=== PATIENT | female | born 1930 | race Caucasian/White ===

== ENCOUNTER 2017-03-20 08:57 | Emergency (ER) | payer MEDICARE, BC ==
[2017-03-20] MEDS ORDERED: Sodium Chloride 0.9% 10 ML Syringe FLUSH PRN ×2 (09:20→10:15)
--- NOTE | 2017-03-20 09:46 | EDM.PDOC ---
ED HPI GENERAL MEDICAL PROBLEM - General Chief Complaint: Chest Pain Stated Complaint: L ARM PAIN/DIZZY Time Seen by Provider: 03/20/17 09:10 Source of Information: Reports: Patient History Limitations: Reports: No Limitations - History of Present Illness INITIAL COMMENTS - FREE TEXT/NARRATIVE: The patient woke up with left arm pain. She went to get her paper and she turned and got dizzy, nauseated and sweaty. That lasted for a few minutes. She feels better now. She has a little pain in her left arm. She did carry groceries in her house yesterday. She has a history of A-fib on coumadin. She has no history of [place]. She has a history of HTN. She denies chest pain or shortness of breath. She has no abdominal pain. She has no pain or edema in her legs. Onset: Gradual Duration: Hour(s): (6am) Location: Reports: Upper Extremity, Left Quality: Reports: Ache Severity: Mild Improves with: Reports: None Worsens with: Reports: None Associated Symptoms: Reports: Nausea/Vomiting. Denies: Chest Pain, Cough, Fever /Chills, Shortness of Breath Left Arm Pain Score (Numeric/FACES): 3 - Related Data Allergies Allergy/AdvReac Type Severity Reaction Status Date / Time No Known Allergies Allergy Verified 06/25/16 00:01 Home Meds: Home Meds Warfarin [Coumadin] 5 mg PO SUTUWETHFRSA 06/22/16 [History] Acetaminophen 500 mg PO Q4H PRN 03/20/17 [History] Diltiazem HCl [Diltiazem 24Hr ER] 240 mg PO DAILY 03/20/17 [History] Furosemide 20 mg PO DAILY 03/20/17 [History] Lisinopril/Hydrochlorothiazide [Lisinopril-Hctz 20-25 mg Tab] 1 tab PO DAILY 04/28 [History] Magnesium Oxide [Magnesium] 400 mg PO BID 03/20/17 [History] Methimazole 5 mg PO DAILY 03/20/17 [History] Omeprazole 20 mg PO ACBREAKFAST 03/20/17 [History] Potassium Chloride [Klor-Con 10] 10 meq PO DAILY 03/20/17 [History] traMADol [Ultram] 50 mg PO TID PRN 03/20/17 [History] Past Medical History HEENT History: Reports: Cataract Cardiovascular History: Reports: Afib, High Cholesterol, Hypertension Other Cardiovascular History: hole in heart Respiratory History: Reports: None Gastrointestinal History: Reports: Gastritis Musculoskeletal History: Reports: Arthritis, Back Pain, Chronic, Neck Pain, Chronic Endocrine/Metabolic History: Reports: Hypothyroidism - Past Surgical History HEENT Surgical History: Reports: Cataract Surgery, Tonsillectomy GI Surgical History: Reports: Appendectomy, Cholecystectomy Endocrine Surgical History: Reports: Thyroidectomy Musculoskeletal Surgical History: Reports: Knee Replacement Social & Family History - Tobacco Use Smoking Status *Q: Never Smoker Second Hand Smoke Exposure: Yes - Caffeine Use Caffeine Use: Reports: None - Recreational Drug Use Recreational Drug Use: No ED ROS GENERAL - Review of Systems Review Of Systems: See Below Constitutional: Reports: No Symptoms HEENT: Reports: No Symptoms Respiratory: Reports: No Symptoms Cardiovascular: Reports: No Symptoms Endocrine: Reports: No Symptoms GI/Abdominal: Reports: Nausea. Denies: Abdominal Pain, Vomiting : Reports: No Symptoms Musculoskeletal: Reports: No Symptoms Skin: Reports: No Symptoms ED EXAM, GENERAL - Physical Exam Exam: See Below Exam Limited By: No Limitations General Appearance: Alert, No Apparent Distress Ears: Normal External Exam Nose: Normal Inspection Throat/Mouth: Normal Inspection Head: Atraumatic, Normocephalic Neck: Normal Inspection Respiratory/Chest: No Respiratory Distress, Lungs Clear, Normal Breath Sounds Cardiovascular: No Edema, No Murmur, Irregularly Irregular GI/Abdominal: Soft, Non-Tender, No Organomegaly, No Mass Back Exam: Normal Inspection Extremities: Normal Inspection Neurological: Alert, Oriented, No Motor/Sensory Deficits EKG INTERPRETATION EKG Date: 03/20/17 Time: 09:09 Rhythm: A-Fib Rate (Beats/Min): 78 [place]: Normal QRS: Normal ST-T: Normal QT: Normal Course - Vital Signs Last Recorded V/S: Last Vital Signs Temp 97.4 F 03/20/17 09:03 Pulse 93 03/20/17 09:03 Resp 16 03/20/17 09:03 BP 160/63 H 03/20/17 09:03 Pulse Ox 98 03/20/17 09:03 - Orders/Labs/Meds Orders: Active Orders 24 hr Category Date Time Status Cardiac Monitoring [RC] . DIRECTED Care 03/20/17 09:20 Active EKG 12 Lead [EKG Documentation Completion] [RC] STAT Care 03/20/17 09:09 Active Oxygen Therapy [RC] PRN Care 03/20/17 09:20 Active Peripheral IV Care [RC] . DIRECTED Care 03/20/17 09:20 Active TSH [CHEM] Stat Lab 03/20/17 09:20 Received Sodium Chloride 0.9% [Normal Saline] 1,000 ml Med 03/20/17 10:15 Active IV ASDIRECTED Sodium Chloride 0.9% [Normal Saline] 100 ml Med 03/20/17 10:15 Active IV ASDIRECTED Sodium Chloride 0.9% [Saline Flush] Med 03/20/17 09:20 Active 10 ml FLUSH ASDIRECTED PRN Sodium Chloride 0.9% [Saline Flush] Med 03/20/17 10:15 Active 10 ml FLUSH ONETIME PRN Peripheral IV Insertion Adult [OM.PC] Stat Oth 03/20/17 09:20 Ordered Medication Orders Sodium Chloride (Normal Saline) 1,000 mls @ 150 mls/hr IV ASDIRECTED RENETTA Last Admin: 03/20/17 10:20 Dose: 150 mls/hr Sodium Chloride (Normal Saline) 100 mls @ 80 mls/hr IV ASDIRECTED RENETTA Last Admin: 03/20/17 10:31 Dose: 80 mls/hr Sodium Chloride (Saline Flush) 10 ml FLUSH ASDIRECTED PRN PRN Reason: Keep Vein Open Last Admin: 03/20/17 09:25 Dose: 10 ml Sodium Chloride (Saline Flush) 10 ml FLUSH ONETIME PRN PRN Reason: IV FLUSH Last Admin: 03/20/17 10:31 Dose: 10 ml Labs: Laboratory Tests 03/20/17 03/20/17 03/20/17 Range/Units 09:20 09:20 09:20 WBC 5.75 (3.98-10.04) K/mm3 RBC 4.32 (3.98-5.22) M/mm3 Hgb 11.7 (11.2-15.7) gm/L Hct 36.4 (34.1-44.9) % MCV 84.3 (79.4-94.8) fl MCH 27.1 (25.6-32.2) pg MCHC 32.1 L (32.2-35.5) g/dl RDW Std Deviation 43.9 (36.4-46.3) fL Plt Count 219 (182-369) K/mm3 MPV 9.2 L (9.4-12.3) fl Neut % (Auto) 63.8 (34.0-71.1) % Lymph % (Auto) 18.8 L (19.3-51.7) % [place] % (Auto) 11.5 (4.7-12.5) % Eos % (Auto) 5.4 (0.7-5.8) Baso % (Auto) 0.2 (0.1-1.2) % Neut # (Auto) 3.67 (1.56-6.13) K/mm3 Lymph # (Auto) 1.08 L (1.18-3.74) K/mm3 [place] # (Auto) 0.66 H (0.24-0.36) K/mm3 Eos # (Auto) 0.31 (0.04-0.36) K/mm3 Baso # (Auto) 0.01 (0.01-0.08) K/mm3 PT 36.9 H (8.0-13.0) SECONDS INR 3.15 Sodium 142 (136-145) mEq/L Potassium 4.1 (3.5-5.1) mEq/L Chloride 106 (98-107) mEq/L Carbon Dioxide 25 (21-32) mEq/L Anion Gap 15.1 H (5-15) BUN 29 H (7-18) mg/dL Creatinine 1.3 H (0.55-1.02) mg/dL Est Cr Clr Drug Dosing 26.92 mL/min Estimated GFR (MDRD) 39 (>60) mL/min BUN/Creatinine Ratio 22.3 H (14-18) Glucose 108 (83-115) mg/dL Calcium 9.3 (8.5-10.1) mg/dL Total Bilirubin 0.6 (0.2-1.0) mg/dL AST 24 (15-37) U/L ALT 18 (14-59) U/L Alkaline Phosphatase 230 H (46-116) U/L Troponin I < 0.017 (0.00-0.056) ng/mL Total Protein 8.1 (6.4-8.2) g/dl Albumin 3.7 (3.4-5.0) g/dl Globulin 4.4 gm/dL Albumin/Globulin Ratio 0.8 L (1-2) Meds: Medications Generic Name Dose Route Start Last Admin Trade Name Freq PRN Reason Stop Dose Admin Sodium Chloride 1,000 mls @ 150 mls/hr 03/20/17 10:15 03/20/17 10:20 Normal Saline IV 150 mls/hr ASDIRECTED RENETTA Administration Sodium Chloride 100 mls @ 80 mls/hr 03/20/17 10:15 03/20/17 10:31 Normal Saline IV 80 mls/hr ASDIRECTED RENETTA Administration Sodium Chloride 10 ml 03/20/17 09:20 03/20/17 09:25 Saline Flush FLUSH 10 ml ASDIRECTED PRN Administration Keep Vein Open Sodium Chloride 10 ml 03/20/17 10:15 03/20/17 10:31 Saline Flush FLUSH 10 ml ONETIME PRN Administration IV FLUSH Discontinued Medications Generic Name Dose Route Start Last Admin Trade Name Freq PRN Reason Stop Dose Admin Iopamidol 100 ml 03/20/17 10:15 03/20/17 10:31 [id number] (76%) IVPUSH 03/20/17 10:16 80 ml ONETIME ONE Administration - Re-Assessments/Exams Free Text/Narrative Re-Assessment/Exam: 03/20/17 09:49 I ordered an EKG, labs, and CXR. Her EKG shows A-fib with no acute changes. 03/20/17 11:29 Her CXR shows a superior mediastinal widening with deviation of the trachea to the right side. 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 I ordered a CT and it confirmed the goiter. 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 She is on a pill for her thyroid. Her CBC looks good. Her INR was 3.15. Her creatinine was 1.3. Her Alk PHos was 230. Her troponin was negative. She says since she has been taking this thyroid pill her muscles have been hurting. Departure - Departure Time of Disposition: 11:35 Disposition: Home, Self-Care 01 Condition: Good Clinical Impression: Left arm pain, Vertigo, Goiter Referrals: Alan Barton MD [Primary Care Provider] - 1 Week Forms: ED Department Discharge Additional Instructions: Take your medication as prescribed. Your INR was 3.15. That is on the high side. We will send this information to your doctor. Follow up with Dr Barton in 1 week. Please return if you are worse. - My Orders Last 24 Hours: My Active Orders 03/20/17 09:09 EKG 12 Lead [EKG Documentation Completion] [RC] STAT 03/20/17 09:20 Cardiac Monitoring [RC] . DIRECTED Oxygen Therapy [RC] PRN Peripheral IV Care [RC] . DIRECTED TSH [CHEM] Stat Sodium Chloride 0.9% [Saline Flush] 10 ml FLUSH ASDIRECTED PRN Peripheral IV Insertion Adult [OM.PC] Stat 03/20/17 10:15 Sodium Chloride 0.9% [Normal Saline] 1,000 ml IV ASDIRECTED Sodium Chloride 0.9% [Normal Saline] 100 ml IV ASDIRECTED Sodium Chloride 0.9% [Saline Flush] 10 ml FLUSH ONETIME PRN - Assessment/Plan Last 24 Hours: My Active Orders 03/20/17 09:09 EKG 12 Lead [EKG Documentation Completion] [RC] STAT 03/20/17 09:20 Cardiac Monitoring [RC] . DIRECTED Oxygen Therapy [RC] PRN Peripheral IV Care [RC] . DIRECTED TSH [CHEM] Stat Sodium Chloride 0.9% [Saline Flush] 10 ml FLUSH ASDIRECTED PRN Peripheral IV Insertion Adult [OM.PC] Stat 03/20/17 10:15 Sodium Chloride 0.9% [Normal Saline] 1,000 ml IV ASDIRECTED Sodium Chloride 0.9% [Normal Saline] 100 ml IV ASDIRECTED Sodium Chloride 0.9% [Saline Flush] 10 ml FLUSH ONETIME PRN
--- NOTE | 2017-03-20 09:55 | CR ---
Chest: Frontal view of the chest was obtained. Comparison: No prior chest x-ray. Widening of the superior mediastinum is seen with deviation of the trachea to the right side. Heart size at the upper limits of normal. Lungs are clear with no acute infiltrates. Impression: 1. Superior mediastinal widening with deviation of the trachea to the right side. 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 If patient's creatinine is normal, contrast would be helpful. 2. Nothing acute is otherwise seen. Diagnostic code #9
[2017-03-20] MEDS ORDERED: Sodium Chloride 0.9% 100 ML IV SCH (10:15)
[2017-03-20] MEDS ORDERED: Sodium Chloride 0.9% 1,000 ML IV SCH (10:15)
[2017-03-20] MEDS ORDERED: Iopamidol 755 Mg/ML 100 ML Bottle IVPUSH ONE (10:15)
--- NOTE | 2017-03-20 10:47 | CT ---
CT chest Technique: Multiple axial sections through the chest were obtained. Intravenous contrast was utilized. Comparison: Previous chest x-ray performed on the same day. Findings: Substernal thyroid goiter is seen on the left side extending into the mediastinum and pushing the trachea to the right side. This substernal thyroid goiter contains some incidental calcifications. Small mediastinal lymph nodes are seen which are felt to be within normal limits. Minimal coronary artery calcification is seen. No pericardial thickening is seen. Pulmonary arteries are opacified and show no discrete filling defects. Small nodule is noted within the left lung base measuring about 3 mm. Lungs otherwise are clear. No pleural effusion is seen. Bone window settings were reviewed which shows degenerative spurring within the spine. Impression: 1. 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 2. Small 3 mm nodule within the left lung base felt to be incidental given the patient's age. 3. Other incidental findings as noted above. Nothing acute is appreciated. Diagnostic code #3
[2017-03-20 11:34] VITALS: BP 132/84
== END 2017-03-20 11:45 | disposition home or self-care (01) ==
LOC: JD.ED 08:57
DX: R42 Dizziness and giddiness (principal); M79.602 Pain in left arm; E04.9 Nontoxic goiter, unspecified; I10 Essential (primary) hypertension; E78.00 Pure hypercholesterolemia, unspecified; I48.91 Unspecified atrial fibrillation; M19.90 Unspecified osteoarthritis, unspecified site; Z98.49 Cataract extraction status, unspecified eye; Z90.49 Acquired absence of other specified parts of digestive tract; Z98.890 Other specified postprocedural states; Z96.659 Presence of unspecified artificial knee joint; E89.0 Postprocedural hypothyroidism; Z79.899 Other long term (current) drug therapy
CPT/HCPCS: 36415; 71010; 71275; 80053; 84443; 84484; 85025; 85610; 93005; 96360; 99285; J7030; J7040; J7050; Q9967; 99284

== ENCOUNTER 2018-05-01 01:02 | Inpatient (IN) | payer MEDICARE, BC ==
[2018-05-01] MEDS ORDERED: Sodium Chloride 0.9% 10 ML Syringe FLUSH PRN (01:15)
--- NOTE | 2018-05-01 03:14 | EDM.PDOC ---
ED HPI GENERAL MEDICAL PROBLEM - General Chief Complaint: Respiratory Problem Stated Complaint: [facility] Time Seen by Provider: 05/01/18 01:11 Source of Information: Reports: Patient, EMS History Limitations: Reports: No Limitations - History of Present Illness INITIAL COMMENTS - FREE TEXT/NARRATIVE: The patient said she was walking from the kitchen to the living room and she fell. She did hit her head but she had no LOC. She is not sure why she fell but she says she has felt weak lately and she has been short of breath with a cough that is productive of yellowish sputum. She came by [facility]. She has no headache, neck pain, abdominal pain, nausea, vomiting, numbness or weakness. She has no hip pain or arm pain. She does have some left thigh pain at times. Onset: Sudden Duration: Minutes: Improves with: Reports: None Worsens with: Reports: None Associated Symptoms: Reports: Cough, cough w sputum. Denies: Chest Pain, Fever/ Chills, Headaches, Nausea/Vomiting, Shortness of Breath Left Leg Pain Score (Numeric/FACES): 4 - Related Data Allergies Allergy/AdvReac Type Severity Reaction Status Date / Time No Known Allergies Allergy Verified 05/01/18 01:03 Home Meds: Home Meds Warfarin [Coumadin] 5 mg PO SUTUWETHFRSA 06/22/16 [History] Acetaminophen 500 mg PO Q4H PRN 03/20/17 [History] Diltiazem HCl [Diltiazem 24Hr ER] 240 mg PO DAILY 03/20/17 [History] Furosemide 1 - 2 tab PO DAILY PRN 03/20/17 [History] Lisinopril/Hydrochlorothiazide [Lisinopril-Hctz 20-25 mg Tab] 1 tab PO DAILY 04/28 [History] Omeprazole 20 mg PO ACBREAKFAST 03/20/17 [History] Potassium Chloride [Klor-Con 10] 10 meq PO DAILY 03/20/17 [History] methIMAzole [Methimazole] 5 mg PO DAILY 03/20/17 [History] Diltiazem [Dilacor XR] 240 mg PO DAILY 05/01/18 [History] Warfarin [Coumadin] 2.5 mg PO MO 05/01/18 [History] Past Medical History HEENT History: Reports: Cataract Cardiovascular History: Reports: Afib, Hypertension Other Cardiovascular History: hole in heart Respiratory History: Reports: None Gastrointestinal History: Reports: Gastritis [employer] History: Reports: Musculoskeletal History: Reports: Arthritis, Back Pain, Chronic, Neck Pain, Chronic Endocrine/Metabolic History: Reports: Hypothyroidism - Past Surgical History HEENT Surgical History: Reports: Cataract Surgery, Tonsillectomy GI Surgical History: Reports: Appendectomy, Cholecystectomy Endocrine Surgical History: Reports: Thyroidectomy Musculoskeletal Surgical History: Reports: Knee Replacement Social & Family History - Tobacco Use Smoking Status *Q: Never Smoker - Caffeine Use Caffeine Use: Reports: None - Recreational Drug Use Recreational Drug Use: No ED ROS GENERAL - Review of Systems Review Of Systems: See Below Constitutional: Reports: No Symptoms HEENT: Reports: No Symptoms Respiratory: Reports: Shortness of Breath, Cough, Sputum Cardiovascular: Reports: No Symptoms Endocrine: Reports: No Symptoms GI/Abdominal: Reports: No Symptoms : Reports: No Symptoms Musculoskeletal: Reports: No Symptoms Skin: Reports: No Symptoms Neurological: Reports: No Symptoms ED EXAM, GENERAL - Physical Exam Exam: See Below Exam Limited By: No Limitations General Appearance: Alert, No Apparent Distress Ears: Normal External Exam Nose: Normal Inspection Head: Atraumatic, Normocephalic Neck: Normal Inspection Respiratory/Chest: No Respiratory Distress, Decreased Breath Sounds Cardiovascular: Regular Rate, Rhythm, No Edema, No Murmur GI/Abdominal: Soft, Non-Tender, No Organomegaly, No Mass Back Exam: Normal Inspection Extremities: Pedal Edema Neurological: Alert, Oriented, No Motor/Sensory Deficits EKG INTERPRETATION EKG Date: 05/01/18 Time: 13:25 Rhythm: A-Fib Rate (Beats/Min): 106 [place]: LAD-Left Percy Deviation QRS: Normal ST-T: Normal QT: Normal Course - Vital Signs Last Recorded V/S: Last Vital Signs Temp 98.4 F 05/01/18 01:04 Pulse 114 H 05/01/18 01:04 Resp 18 05/01/18 01:04 BP 160/92 H 05/01/18 01:04 Pulse Ox 92 L 05/01/18 01:04 - Orders/Labs/Meds Orders: Active Orders 24 hr Category Date Time Status Cardiac Monitoring [RC] . DIRECTED Care 05/01/18 01:15 Active EKG Documentation Completion [RC] ASDIRECTED Care 05/01/18 01:17 Active Peripheral IV Care [RC] . DIRECTED Care 05/01/18 01:16 Active Chest 2V [CR] Stat Exams 05/01/18 01:16 Taken Head wo Cont [CT] Stat Exams 05/01/18 01:16 Taken Sodium Chloride 0.9% [Saline Flush] Med 05/01/18 01:15 Active 10 ml FLUSH ASDIRECTED PRN Peripheral IV Insertion Adult [OM.PC] Stat Oth 05/01/18 01:15 Ordered EKG 12 Lead [EK] Stat Ther 05/01/18 01:17 Ordered Medication Orders Sodium Chloride (Saline Flush) 10 ml FLUSH ASDIRECTED PRN PRN Reason: Keep Vein Open Last Admin: 05/01/18 01:30 Dose: 10 ml Labs: Laboratory Tests 05/01/18 05/01/18 05/01/18 Range/Units 01:40 01:40 01:40 WBC 8.36 (3.98-10.04) K/mm3 RBC 4.50 (3.98-5.22) M/mm3 Hgb 12.7 (11.2-15.7) gm/L Hct 39.2 (34.1-44.9) % MCV 87.1 (79.4-94.8) fl MCH 28.2 (25.6-32.2) pg MCHC 32.4 (32.2-35.5) g/dl RDW Std Deviation 45.0 (36.4-46.3) fL Plt Count 239 (182-369) K/mm3 MPV 9.4 (9.4-12.3) fl Neut % (Auto) 74.6 H (34.0-71.1) % Lymph % (Auto) 10.6 L (19.3-51.7) % [place] % (Auto) 11.4 (4.7-12.5) % Eos % (Auto) 3.1 (0.7-5.8) Baso % (Auto) 0.2 (0.1-1.2) % Neut # (Auto) 6.23 H (1.56-6.13) K/mm3 Lymph # (Auto) 0.89 L (1.18-3.74) K/mm3 [place] # (Auto) 0.95 H (0.24-0.36) K/mm3 Eos # (Auto) 0.26 (0.04-0.36) K/mm3 Baso # (Auto) 0.02 (0.01-0.08) K/mm3 PT 15.4 H (9.5-12.1) SECONDS INR 1.42 Sodium 136 (136-145) mEq/L Potassium 3.3 L (3.5-5.1) mEq/L Chloride 104 (98-107) mEq/L Carbon Dioxide 24 (21-32) mEq/L Anion Gap 11.3 (5-15) BUN 24 H (7-18) mg/dL Creatinine 1.0 (0.55-1.02) mg/dL Est Cr Clr Drug Dosing 30.16 mL/min Estimated GFR (MDRD) 52 (>60) mL/min BUN/Creatinine Ratio 24.0 H (14-18) Glucose 98 (83-115) mg/dL Calcium 9.2 (8.5-10.1) mg/dL Total Bilirubin 0.8 (0.2-1.0) mg/dL AST 38 H (15-37) U/L ALT 24 (14-59) U/L Alkaline Phosphatase 146 H (46-116) U/L Troponin I < 0.017 (0.00-0.056) ng/mL NT-Pro-B Natriuret Pep (0-450) pg/mL Total Protein 8.2 (6.4-8.2) g/dl Albumin 3.2 L (3.4-5.0) g/dl Globulin 5.0 gm/dL Albumin/Globulin Ratio 0.6 L (1-2) Urine Color (Yellow) Urine Appearance (Clear) Urine pH (5.0-8.0) Ur Specific Herman (1.005-1.030) Urine Protein (Negative) Urine Glucose (UA) (Negative) Urine Ketones (Negative) Urine Occult Blood (Negative) Urine Nitrite (Negative) Urine Bilirubin (Negative) Urine Urobilinogen (0.2-1.0) Ur Leukocyte Esterase (Negative) Urine RBC (0-5) /hpf Urine WBC (0-5) /hpf Ur Epithelial Cells (0-5) /hpf Urine Bacteria (FEW) /hpf Urine Mucus (FEW) /hpf 05/01/18 05/01/18 Range/Units 01:40 03:28 WBC (3.98-10.04) K/mm3 RBC (3.98-5.22) M/mm3 Hgb (11.2-15.7) gm/L Hct (34.1-44.9) % MCV (79.4-94.8) fl MCH (25.6-32.2) pg MCHC (32.2-35.5) g/dl RDW Std Deviation (36.4-46.3) fL Plt Count (182-369) K/mm3 MPV (9.4-12.3) fl Neut % (Auto) (34.0-71.1) % Lymph % (Auto) (19.3-51.7) % [place] % (Auto) (4.7-12.5) % Eos % (Auto) (0.7-5.8) Baso % (Auto) (0.1-1.2) % Neut # (Auto) (1.56-6.13) K/mm3 Lymph # (Auto) (1.18-3.74) K/mm3 [place] # (Auto) (0.24-0.36) K/mm3 Eos # (Auto) (0.04-0.36) K/mm3 Baso # (Auto) (0.01-0.08) K/mm3 PT (9.5-12.1) SECONDS INR Sodium (136-145) mEq/L Potassium (3.5-5.1) mEq/L Chloride (98-107) mEq/L Carbon Dioxide (21-32) mEq/L Anion Gap (5-15) BUN (7-18) mg/dL Creatinine (0.55-1.02) mg/dL Est Cr Clr Drug Dosing mL/min Estimated GFR (MDRD) (>60) mL/min BUN/Creatinine Ratio (14-18) Glucose (83-115) mg/dL Calcium (8.5-10.1) mg/dL Total Bilirubin (0.2-1.0) mg/dL AST (15-37) U/L ALT (14-59) U/L Alkaline Phosphatase (46-116) U/L Troponin I (0.00-0.056) ng/mL NT-Pro-B Natriuret Pep 2047 H (0-450) pg/mL Total Protein (6.4-8.2) g/dl Albumin (3.4-5.0) g/dl Globulin gm/dL Albumin/Globulin Ratio (1-2) Urine Color Dark yellow (Yellow) Urine Appearance Slt cloudy H (Clear) Urine pH 6.0 (5.0-8.0) Ur Specific Herman 1.025 (1.005-1.030) Urine Protein 1+ H (Negative) Urine Glucose (UA) Negative (Negative) Urine Ketones Trace H (Negative) Urine Occult Blood Negative (Negative) Urine Nitrite Negative (Negative) Urine Bilirubin 1+ H (Negative) Urine Urobilinogen 2.0 H (0.2-1.0) Ur Leukocyte Esterase 1+ H (Negative) Urine RBC 0-5 (0-5) /hpf Urine WBC 5-10 H (0-5) /hpf Ur Epithelial Cells 10-20 H (0-5) /hpf Urine Bacteria Moderate H (FEW) /hpf Urine Mucus Few (FEW) /hpf Meds: Medications Generic Name Dose Route Start Last Admin Trade Name Freq PRN Reason Stop Dose Admin Sodium Chloride 10 ml 05/01/18 01:15 05/01/18 01:30 Saline Flush FLUSH 10 ml ASDIRECTED PRN Administration Keep Vein Open Discontinued Medications Generic Name Dose Route Start Last Admin Trade Name Freq PRN Reason Stop Dose Admin Furosemide 40 mg 05/01/18 03:24 05/01/18 03:32 Lasix IVPUSH 05/01/18 03:25 40 mg NOW ONE Administration - Re-Assessments/Exams Free Text/Narrative Re-Assessment/Exam: 05/01/18 03:14 I ordered an IV saline lock, EKG, CT of her head, labs and CXR. Her EKG shows A -fib with no acute changes. Her CXR shows widened mediastinum that was seen before and some mild congestive changes. Her CBC looks good. Her INR was subtherapeutic at 1.42. Her K was a little low at 3.3. Her AST was slightly elevated at 38. Her Alk Phos was elevated at 146. Her troponin was negative. Her BNP was elevated at 2047. She has some CHF. [facility] called me and the CT shows acute subdural hematoma layering along the falx cerebri measuring 2mm in thickness. 05/01/18 03:25 I will need to admit her and observe her with repeat CT. It is early and I will wait to call the neurosurgeon and hospitalist. She says she has not felt well for a couple days. I will get a UA and give her lasix 40mg IV. 05/01/18 03:27 I will also hold her coumadin for now. I asked her what her wishes were if she were to stop breathing or if her heart were to stop and she said to do everything. For now she is a full code. 05/01/18 06:23 Her UA shows no UTI. It appears it was a contaminated sample. I called [facility] in [place] and talked with Dr Guerra and he recommended observation and a repeat CT in a month with him. I called Dr Hall and he agreed to the admission. The patient has the fall, subdural hematoma and CHF exacerbation. Departure - Departure Time of Disposition: 06:30 Disposition: Admitted As Inpatient 64 Condition: Fair Clinical Impression: Subdural hematoma Fall Qualifiers: Encounter type: initial encounter Qualified Code(s): W19.XXXA - Unspecified fall, initial encounter CHF exacerbation Qualifiers: Heart failure type: unspecified Qualified Code(s): I50.9 - Heart failure, unspecified - Discharge Information Referrals: Alan Barton MD [Primary Care Provider] - Forms: ED Department Discharge - My Orders Last 24 Hours: My Active Orders 05/01/18 01:15 Cardiac Monitoring [RC] . DIRECTED Sodium Chloride 0.9% [Saline Flush] 10 ml FLUSH ASDIRECTED PRN Peripheral IV Insertion Adult [OM.PC] Stat 05/01/18 01:16 Peripheral IV Care [RC] . DIRECTED Chest 2V [CR] Stat Head wo Cont [CT] Stat 05/01/18 01:17 EKG Documentation Completion [RC] ASDIRECTED EKG 12 Lead [EK] Stat - Assessment/Plan Last 24 Hours: My Active Orders 05/01/18 01:15 Cardiac Monitoring [RC] . DIRECTED Sodium Chloride 0.9% [Saline Flush] 10 ml FLUSH ASDIRECTED PRN Peripheral IV Insertion Adult [OM.PC] Stat 05/01/18 01:16 Peripheral IV Care [RC] . DIRECTED Chest 2V [CR] Stat Head wo Cont [CT] Stat 05/01/18 01:17 EKG Documentation Completion [RC] ASDIRECTED EKG 12 Lead [EK] Stat
[2018-05-01] MEDS ORDERED: Furosemide 40 MG/4 ML VIAL IVPUSH ONE (03:24)
--- NOTE | 2018-05-01 07:18 | PCM.HP ---
H&P History of Present Illness - General Date of Service: 05/01/18 Admit Problem/Dx: Admission Diagnosis/Problem Admission Diagnosis/Problem Subdural hematoma Source of Information: Patient, Provider, RN, RN Notes Reviewed History Limitations: Reports: No Limitations - History of Present Illness Initial Comments - Free Text/Narative: Pamela Lim is an 87 yo female patient who presented to our ED via ambulance late last night (05/01/18) after a fall. She was reportedly walking from her kitchen into the living room and fell. She denies loss of consciousness but states she did her head. She is unsure why she fell but states she has been weak lately. She reports SOB, cough, and yellow colored sputum. She denies headache, neck pain, abdominal pain, nausea, vomiting, weakness, fever, or chills. In the ED temperature was 98.4 Fahrenheit. Pulse 114. Respirations 18. Blood pressure 160/92. Pulse ox 92%. Twelve-lead EKG was obtained and interpreted by the ED provider as A. fib at 106 bpm. There is left axis deviation. No ST segment abnormalities. Obtained: WBC normal at 8.36. Hemoglobin 12.7. Hematocrit 39.2. She's normocytic. Platelets are normal at 239,000. Neutrophils are elevated at 74.6%. PT is 15.4. INR is 1.42. Sodium is 136. Potassium is low at 3.3. Chloride is 104. Carbon dioxide 24. Anion gap 11.3. BUN is 24. Creatinine 1.0. EGFR is 52. Glucose 98. Calcium 9.2. Bilirubin 0.8. AST is elevated at 38, ALT 24, alkaline phosphatase 146. Troponin is negative at less than 0.017. Total protein is 8.2. Albumin is low at 3.2. ProBNP is high at 2047. UA is obtained and is noted to be dark yellow and slightly cloudy. One plus protein, trace ketones, 1+ bilirubin, 2.0-year- old bilirubin, 1+ leuk esterase, 5-10 urine wbc's, and 10-20 epithelial cells are noted. There is moderate bacteria. 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 Chest x-ray obtained shows a widened mediastinum however this is noted to be similar to prior chest x-rays. There is mild congestive changes. CT scan of the head was obtained and shows an acute subdural hematoma with around the falx cerebri measuring 2 mm in thickness. The ED provider did contact atelectasis in [place] and talk with Dr. Guerra. He recommended she be observed and repeat CT scan be obtained with him in a month. She carries a history of: A. fib, hypertension, Atrial septal defect , Hyperglycemia, chronic back pain, chronic neck pain, hyperthyroidism, dependant edema, DJD. She was never a smoker. She is a full code. Her PCP is Dr. Barton. Left Leg Pain Score (Numeric/FACES): 4 - Related Data Allergies/Adverse Reactions: Allergies Allergy/AdvReac Type Severity Reaction Status Date / Time No Known Allergies Allergy Verified 05/01/18 01:03 Home Medications: Home Meds Warfarin [Coumadin] 5 mg PO SUTUWETHFRSA 06/22/16 [History] Acetaminophen 500 mg PO Q4H PRN 03/20/17 [History] Diltiazem HCl [Diltiazem 24Hr ER] 240 mg PO DAILY 03/20/17 [History] Furosemide 1 - 2 tab PO DAILY PRN 03/20/17 [History] Lisinopril/Hydrochlorothiazide [Lisinopril-Hctz 20-25 mg Tab] 1 tab PO DAILY 04/28 [History] Omeprazole 20 mg PO ACBREAKFAST 03/20/17 [History] Potassium Chloride [Klor-Con 10] 10 meq PO DAILY 03/20/17 [History] methIMAzole [Methimazole] 5 mg PO DAILY 03/20/17 [History] Diltiazem [Dilacor XR] 240 mg PO DAILY 05/01/18 [History] Ferrous Sulfate [Slow Fe] 1 tab PO DAILY 05/01/18 [History] Warfarin [Coumadin] 2.5 mg PO MO 05/01/18 [History] Past Medical History HEENT History: Reports: Cataract Cardiovascular History: Reports: Afib, Hypertension Other Cardiovascular History: hole in heart Respiratory History: Reports: None Gastrointestinal History: Reports: Gastritis 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: Musculoskeletal History: Reports: Arthritis, Back Pain, Chronic, Neck Pain, Chronic Endocrine/Metabolic History: Reports: Hypothyroidism - Past Surgical History HEENT Surgical History: Reports: Cataract Surgery, Tonsillectomy GI Surgical History: Reports: Appendectomy, Cholecystectomy Endocrine Surgical History: Reports: Thyroidectomy Musculoskeletal Surgical History: Reports: Knee Replacement Social & Family History - Tobacco Use Smoking Status *Q: Never Smoker - Caffeine Use Caffeine Use: Reports: None - Recreational Drug Use Recreational Drug Use: No H&P Review of Systems - Review of Systems: Review Of Systems: See Below General: Denies: Fever, Chills, Malaise, Weakness HEENT: Reports: No Symptoms. Denies: Post Nasal Drip, Sore Throat Pulmonary: Reports: Shortness of Breath, Cough, Sputum. Denies: Wheezing Cardiovascular: Reports: No Symptoms. Denies: Chest Pain, Palpitations, Edema Gastrointestinal: Reports: No Symptoms. Denies: Abdominal Pain, Constipation, Diarrhea, Nausea, Vomiting Genitourinary: Reports: No Symptoms. Denies: Dysuria, Frequency, Burning, Pain Musculoskeletal: Reports: No Symptoms Skin: Reports: No Symptoms Psychiatric: Reports: No Symptoms Neurological: Reports: No Symptoms. Denies: Confusion Hematologic/Lymphatic: Reports: No Symptoms Immunologic: Reports: No Symptoms Exam - Exam Exam: See Below - Vital Signs Vital Signs: Last Vital Signs Temp 98.4 F 05/01/18 01:04 Pulse 114 H 05/01/18 01:04 Resp 18 05/01/18 01:04 BP 160/92 H 05/01/18 01:04 Pulse Ox 92 L 05/01/18 01:04 Weight: 185 lb - Exam Quality Assessment: DVT Prophylaxis General: Alert, Oriented, Cooperative HEENT: Conjunctiva Clear, EACs Clear, EOMI, Hearing Intact, Mucosa Moist & [place] , Nares Patent, Normal Nasal Septum, Posterior Pharynx Clear, PERRLA Neck: Supple, Trachea Midline Lungs: Normal Respiratory Effort, Decreased Breath Sounds Cardiovascular: Irregular Rhythm. No: Regular Rate GI/Abdominal Exam: Normal Bowel Sounds, Soft, Non-Tender, No Organomegaly, No Distention, No Abnormal Bruit, No Mass, Pelvis Stable (Female) Exam: Deferred Rectal (Female) Exam: Deferred Back Exam: Normal Inspection, Full Range of Motion Extremities: Normal Inspection, Normal Range of Motion, Non-Tender, Normal Capillary Refill, Pedal Edema (trace ) Peripheral Pulses: 2+: Radial (L), Radial (R), Dorsalis Pedis (L), Dorsalis Pedis (R) Skin: Warm, Dry, Intact Neurological: Cranial Nerves Intact, Strength Equal Bilateral, Normal Speech, Normal Tone, Sensation Intact Neuro Extensive - Mental Status: Alert, Oriented x3, Normal Mood/Affect, Normal Cognition, Memory Intact Neuro Extensive - Motor, Sensory, Reflexes: CN II-XII Intact, Normal Gait. No: Tongue Deviation (L), Tongue Deviation (R), Receptive Aphasia, Expressive Aphasia, Total Aphasia, Facial palsy (L), Facial Palsy (R), Facial Palsy w Forehead, Hemeplagia (R), Hemeplagia (L), Pronator Drift (R), Pronator Drift (L) , Abnormal Finger to Nose Psychiatric: Alert, Normal Affect, Normal Mood - Patient Data Lab Results Last 24 hrs: Laboratory Results - last 24 hr 05/01/18 05/01/18 05/01/18 Range/Units 01:40 01:40 01:40 WBC 8.36 (3.98-10.04) K/mm3 RBC 4.50 (3.98-5.22) M/mm3 Hgb 12.7 (11.2-15.7) gm/L Hct 39.2 (34.1-44.9) % MCV 87.1 (79.4-94.8) fl MCH 28.2 (25.6-32.2) pg MCHC 32.4 (32.2-35.5) g/dl RDW Std Deviation 45.0 (36.4-46.3) fL Plt Count 239 (182-369) K/mm3 MPV 9.4 (9.4-12.3) fl Neut % (Auto) 74.6 H (34.0-71.1) % Lymph % (Auto) 10.6 L (19.3-51.7) % Gordon % (Auto) 11.4 (4.7-12.5) % Eos % (Auto) 3.1 (0.7-5.8) Baso % (Auto) 0.2 (0.1-1.2) % Neut # (Auto) 6.23 H (1.56-6.13) K/mm3 Lymph # (Auto) 0.89 L (1.18-3.74) K/mm3 Gordon # (Auto) 0.95 H (0.24-0.36) K/mm3 Eos # (Auto) 0.26 (0.04-0.36) K/mm3 Baso # (Auto) 0.02 (0.01-0.08) K/mm3 PT 15.4 H (9.5-12.1) SECONDS INR 1.42 Sodium 136 (136-145) mEq/L Potassium 3.3 L (3.5-5.1) mEq/L Chloride 104 (98-107) mEq/L Carbon Dioxide 24 (21-32) mEq/L Anion Gap 11.3 (5-15) BUN 24 H (7-18) mg/dL Creatinine 1.0 (0.55-1.02) mg/dL Est Cr Clr Drug Dosing 30.16 mL/min Estimated GFR (MDRD) 52 (>60) mL/min BUN/Creatinine Ratio 24.0 H (14-18) Glucose 98 (83-115) mg/dL Calcium 9.2 (8.5-10.1) mg/dL Total Bilirubin 0.8 (0.2-1.0) mg/dL AST 38 H (15-37) U/L ALT 24 (14-59) U/L Alkaline Phosphatase 146 H (46-116) U/L Troponin I < 0.017 (0.00-0.056) ng/mL NT-Pro-B Natriuret Pep (0-450) pg/mL Total Protein 8.2 (6.4-8.2) g/dl Albumin 3.2 L (3.4-5.0) g/dl Globulin 5.0 gm/dL Albumin/Globulin Ratio 0.6 L (1-2) Urine Color (Yellow) Urine Appearance (Clear) Urine pH (5.0-8.0) Ur Specific [place] (1.005-1.030) Urine Protein (Negative) Urine Glucose (UA) (Negative) Urine Ketones (Negative) Urine Occult Blood (Negative) Urine Nitrite (Negative) Urine Bilirubin (Negative) Urine Urobilinogen (0.2-1.0) Ur Leukocyte Esterase (Negative) Urine RBC (0-5) /hpf Urine WBC (0-5) /hpf Ur Epithelial Cells (0-5) /hpf Urine Bacteria (FEW) /hpf Urine Mucus (FEW) /hpf 05/01/18 05/01/18 Range/Units 01:40 03:28 WBC (3.98-10.04) K/mm3 RBC (3.98-5.22) M/mm3 Hgb (11.2-15.7) gm/L Hct (34.1-44.9) % MCV (79.4-94.8) fl MCH (25.6-32.2) pg MCHC (32.2-35.5) g/dl RDW Std Deviation (36.4-46.3) fL Plt Count (182-369) K/mm3 MPV (9.4-12.3) fl Neut % (Auto) (34.0-71.1) % Lymph % (Auto) (19.3-51.7) % Gordon % (Auto) (4.7-12.5) % Eos % (Auto) (0.7-5.8) Baso % (Auto) (0.1-1.2) % Neut # (Auto) (1.56-6.13) K/mm3 Lymph # (Auto) (1.18-3.74) K/mm3 [place] # (Auto) (0.24-0.36) K/mm3 Eos # (Auto) (0.04-0.36) K/mm3 Baso # (Auto) (0.01-0.08) K/mm3 PT (9.5-12.1) SECONDS INR Sodium (136-145) mEq/L Potassium (3.5-5.1) mEq/L Chloride (98-107) mEq/L Carbon Dioxide (21-32) mEq/L Anion Gap (5-15) BUN (7-18) mg/dL Creatinine (0.55-1.02) mg/dL Est Cr Clr Drug Dosing mL/min Estimated GFR (MDRD) (>60) mL/min BUN/Creatinine Ratio (14-18) Glucose (83-115) mg/dL Calcium (8.5-10.1) mg/dL Total Bilirubin (0.2-1.0) mg/dL AST (15-37) U/L ALT (14-59) U/L Alkaline Phosphatase (46-116) U/L Troponin I (0.00-0.056) ng/mL NT-Pro-B Natriuret Pep 2047 H (0-450) pg/mL Total Protein (6.4-8.2) g/dl Albumin (3.4-5.0) g/dl Globulin gm/dL Albumin/Globulin Ratio (1-2) Urine Color Dark yellow (Yellow) Urine Appearance Slt cloudy H (Clear) Urine pH 6.0 (5.0-8.0) Ur Specific [place] 1.025 (1.005-1.030) Urine Protein 1+ H (Negative) Urine Glucose (UA) Negative (Negative) Urine Ketones Trace H (Negative) Urine Occult Blood Negative (Negative) Urine Nitrite Negative (Negative) Urine Bilirubin 1+ H (Negative) Urine Urobilinogen 2.0 H (0.2-1.0) Ur Leukocyte Esterase 1+ H (Negative) Urine RBC 0-5 (0-5) /hpf Urine WBC 5-10 H (0-5) /hpf Ur Epithelial Cells 10-20 H (0-5) /hpf Urine Bacteria Moderate H (FEW) /hpf Urine Mucus Few (FEW) /hpf Result Diagrams: 05/01/18 01:40 05/01/18 01:40 - Problem List (1) Subdural hematoma SNOMED Code(s): 69513855 ICD Code: S06.5X9A - TRAUM SUBDR HEM W LOC OF UNSP DURATION, INIT Status: Acute Priority: High Current Visit: Yes (2) Fall SNOMED Code(s): 8820775, 308480557 ICD Code: W19.XXXA - UNSPECIFIED FALL, INITIAL ENCOUNTER Status: Acute Priority: High Current Visit: Yes Qualifiers: Encounter type: initial encounter Qualified Code(s): W19.XXXA - Unspecified fall, initial encounter (3) A-fib SNOMED Code(s): 06802276 ICD Code: I48.91 - UNSPECIFIED ATRIAL FIBRILLATION Status: Chronic Priority: Medium Current Visit: No Qualifiers: Atrial fibrillation type: unspecified Qualified Code(s): I48.91 - Unspecified atrial fibrillation (4) HTN (hypertension) SNOMED Code(s): 14550248 ICD Code: I10 - ESSENTIAL (PRIMARY) HYPERTENSION Status: Chronic Priority : Medium Current Visit: No Qualifiers: Hypertension type: unspecified Qualified Code(s): I10 - Essential (primary ) hypertension (5) Chronic neck and back pain SNOMED Code(s): 19859371 ICD Code: M54.2 - CERVICALGIA; M54.9 - DORSALGIA, UNSPECIFIED; G89.29 - OTHER CHRONIC PAIN Status: Chronic Priority: Low Current Visit: No (6) Hyperthyroidism SNOMED Code(s): 21087768 ICD Code: E05.90 - THYROTOXICOSIS, UNSP WITHOUT THYROTOXIC CRISIS OR STORM Status: Chronic Priority: High Current Visit: Yes (7) DJD (degenerative joint disease) SNOMED Code(s): 742323232 ICD Code: M19.90 - UNSPECIFIED OSTEOARTHRITIS, UNSPECIFIED SITE Status: Chronic Priority: Low Current Visit: No Qualifiers: Osteoarthritis location: unspecified site Osteoarthritis type: unspecified Qualified Code(s): M19.90 - Unspecified osteoarthritis, unspecified site (8) Dependent edema SNOMED Code(s): 384441124 ICD Code: R60.9 - EDEMA, UNSPECIFIED Status: Chronic Priority: Medium Current Visit: Yes Problem List Initiated/Reviewed/Updated: Yes Orders Last 24hrs: Active Orders 24 hr Category Date Time Status Patient Status [ADT] Routine ADT 05/01/18 06:48 Active Cardiac Monitoring [RC] . DIRECTED Care 05/01/18 01:15 Active EKG Documentation Completion [RC] ASDIRECTED Care 05/01/18 01:17 Active Peripheral IV Care [RC] . DIRECTED Care 05/01/18 01:16 Active Chest 2V [CR] Stat Exams 05/01/18 01:16 Taken Head wo Cont [CT] Stat Exams 05/01/18 01:16 Taken Sodium Chloride 0.9% [Saline Flush] Med 05/01/18 01:15 Active 10 ml FLUSH ASDIRECTED PRN Peripheral IV Insertion Adult [OM.PC] Stat Oth 05/01/18 01:15 Ordered EKG 12 Lead [EK] Stat Ther 05/01/18 01:17 Ordered Medication Orders Sodium Chloride (Saline Flush) 10 ml FLUSH ASDIRECTED PRN PRN Reason: Keep Vein Open Last Admin: 05/01/18 01:30 Dose: 10 ml Assessment/Plan Comment:: I/P: Subdural hematoma -2/2 fall - hit head, denies LOC -Risk factor: on Warfarin -INR 1.42 -Head CT scan: Acute subdural hematoma layering along falx cerebri measuring 2mm in thickness -Dr. Guerra contacted by ED Provider: Recommending observation and repeat CT in one month with him -Seizure precautions -Neuro checks as ordered -Fall precautions -PT/OT -Repeat CT if needed Fall -Fell at home going from kitchen to living room -Unsure why she fell -Denies LOC -Reports productive cough and SOB for last 2 weeks -No leukocytosis, reports fever and cold 2 weeks ago -UA shows probable contamination; denies urinary symptoms; repeat -EKG in ED shows A-fib with no ST changes -Troponin negative -Viral panel ordered Elevated BNP -BNP 2046 -No reported prior history of heart failure -CXR in ED: Nothing acute superior mediastinal mass correlating with substernal thyroid goiter -Trace pedal edema -40mg IVP Lasix given in ED -Reports productive cough and SOB for last 2 weeks -On home lisinopril/HCTZ and lasix -Troponin negative -Obtain old records: No hx of heart failure, Hx/o dependant edema -Echo today Hypothyroidism -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 fib hypertension Atrial septal defect Hyperglycemia chronic back pain chronic neck pain hyperthyroidism dependant edema DJD Plan: Admit to medical floor on telemetry Home medications as ordered Routine AM labs PT/OT CM/SW for discharge planning Other orders as indicated above DVT prophylaxis: SCDs GI Prophylaxis: Pepcid Code status: Full Code; PCP: Dr. Barton
[2018-05-01] MEDS ORDERED: Ondansetron 4 MG Tab.DIS PO PRN (08:42)
[2018-05-01] MEDS ORDERED: Acetaminophen/HYDROcodone 325-5 MG Tab PO PRN (08:42)
[2018-05-01] MEDS ORDERED: Ondansetron 4 MG/2 ML SDV IV PRN (08:42)
[2018-05-01] MEDS ORDERED: Docusate Sodium 100 MG Cap PO PRN (08:42)
[2018-05-01] MEDS ORDERED: Albuterol/Ipratropium 3.0-0.5 MG/3 ML Neb Soln NEB PRN (08:42)
[2018-05-01] MEDS ORDERED: Acetaminophen 325 MG Tab PO PRN (08:42)
[2018-05-01] MEDS ORDERED: Bisacodyl 5 MG Tab PO PRN (08:42)
[2018-05-01] MEDS ORDERED: Metoprolol Tartrate 5 MG/5 ML SDV IVPUSH PRN (08:46)
[2018-05-01] MEDS ORDERED: LORazepam 2 MG/ML SDV IVPUSH PRN (08:46)
[2018-05-01] MEDS ORDERED: hydrALAZINE 20 MG/ML SDV IVPUSH PRN (08:46)
[2018-05-01] MEDS ORDERED: Famotidine 20 MG Tab PO SCH (09:00)
--- NOTE | 2018-05-01 09:05 | CT ---
Head CT Technique: Multiple axial sections through the brain were obtained. Intravenous contrast was not utilized. Comparison: No prior intracranial imaging. Findings: Very small amount of subdural blood seen along the interhemispheric falx. No parenchymal hemorrhage is seen. Ventricles along with basal cisterns and sulci over the convexities are moderately prominent. Minimal diminished density is noted within the periventricular white matter which is compatible with small vessel ischemic demyelination change. Atherosclerotic calcification is noted within the carotid siphon. Bone window settings show scattered mucosal thickening within the frontal and ethmoid as well as sphenoid sinus which appears to be pre-existing. No acute calvarial abnormality is seen. Impression: 1. Mild mucosal thickening within the paranasal sinuses compatible with mild chronic sinusitis. 2. Small amount of subdural blood along the interhemispheric falx. 3. Senescent change as noted above. Diagnostic code #5 I agree with preliminary report from [facility], finalized on 05/01/18, 3:58 AM Central Time
--- NOTE | 2018-05-01 11:02 | CR ---
Chest: Two views of the chest are obtained. Comparison: Prior chest CT of 03/20/17 and chest x-ray of 03/20/17. Superior mediastinal mass is seen on the left side bowing the trachea to the right side. This correlates to an enlarged substernal thyroid goiter on chest CT. Lungs are clear. Heart size appears within normal limits. Mild degenerative change is noted throughout the spine. Impression: 1. Incidental findings. Nothing acute is seen on two-view chest x-ray. Diagnostic code #2
[2018-05-01] MEDS: Methimazole 5 MG Tab PO SCH (11:45)
[2018-05-01] MEDS: Diltiazem 240 MG Cap.ER PO SCH (11:45)
[2018-05-01] MEDS ORDERED: Potassium Chloride 20 MEQ Tab.ER PO ONE (12:00)
[2018-05-02] MEDS: Pantoprazole 40 MG Tab.CR PO SCH (06:16)
[2018-05-02] MEDS: guaiFENesin/Dextromethorphan 100-10 MG/5 ML Soln 5 ML Cup PO PRN (07:00)
[2018-05-02] MEDS ORDERED: Magnesium Sulfate/Water 4 GM in Premix Bag 1 BAG IV ONE (08:30)
[2018-05-02] MEDS ORDERED: Famotidine 20 MG Tab PO SCH (09:00)
[2018-05-02] MEDS: Methimazole 5 MG Tab PO SCH (10:17)
[2018-05-02] MEDS: Diltiazem 240 MG Cap.ER PO SCH (10:17)
[2018-05-02] MEDS: Ferrous Sulfate 325 MG Tab PO SCH (10:17)
[2018-05-02] MEDS: Furosemide 40 MG/4 ML VIAL IVPUSH SCH (10:17)
[2018-05-02] MEDS: Potassium Chloride 10 MEQ Tab.ER PO SCH (10:17)
[2018-05-02] MEDS ORDERED: cefTRIAXone 2 GM in Sodium Chloride 0.9% 100 ML IV SCH (15:30)
--- NOTE | 2018-05-02 15:37 | PCM.PN ---
- General Info Date of Service: 05/02/18 Admission Dx/Problem (Free Text): Admission Diagnosis/Problem Admission Diagnosis/Problem Subdural hematoma Subjective Update: In to see Pamela. She is sitting in chair talking on the phone. She seems very comfortable and even states she has enjoyed her stay here. She is alert and oriented. No new symptoms. She does still have a cough, states it hasn't worsened but is about the same as before. Still awaiting results from the viral panel. No other complaints. States she is feeling very good and ready to go home. I updated her on the UTI and that we will be starting treatment for it today; she is in agreement with this plan, but states "I don't have any symptoms ". No other concerns from nursing. Will likely D/C pending urine culture. Likely won't need a repeat CT while she is here unless she has a change in mentation, but still recommend outpt f/u CT. Functional Status: Reports: Pain Controlled, Tolerating Diet, Ambulating (with walker ), Urinating - Review of Systems General: Reports: No Symptoms. Denies: Fever, Chills HEENT: Reports: No Symptoms Pulmonary: Reports: Cough Cardiovascular: Reports: No Symptoms. Denies: Chest Pain Gastrointestinal: Reports: No Symptoms. Denies: Abdominal Pain, Diarrhea, Nausea, Vomiting Genitourinary: Reports: No Symptoms. Denies: Dysuria, Frequency, Burning, Pain , Urgency, Incontinence, Hematuria, Flank Pain Musculoskeletal: Reports: No Symptoms Skin: Reports: No Symptoms Neurological: Reports: No Symptoms. Denies: Confusion, Dizziness Psychiatric: Reports: No Symptoms. Denies: Confusion - Patient Data Vitals - Most Recent: Last Vital Signs Temp 97.7 F 05/02/18 10:09 Pulse 81 05/02/18 13:41 Resp 18 05/02/18 13:41 BP 126/64 05/02/18 13:41 Pulse Ox 97 05/02/18 13:41 Weight - Most Recent: 178 lb 8 oz I&O - Last 24 Hours: Intake & Output 05/02/18 05/02/18 05/02/18 06:59 14:59 22:59 Intake Total 200 180 Output Total 500 Balance -300 180 Lab Results Last 24 Hours: Laboratory Results - last 24 hr 05/01/18 05/02/18 05/02/18 Range/Units 18:25 05:15 05:15 WBC 7.08 (3.98-10.04) K/mm3 RBC 4.24 (3.98-5.22) M/mm3 Hgb 12.0 (11.2-15.7) gm/L Hct 37.1 (34.1-44.9) % MCV 87.5 (79.4-94.8) fl MCH 28.3 (25.6-32.2) pg MCHC 32.3 (32.2-35.5) g/dl RDW Std Deviation 44.0 (36.4-46.3) fL Plt Count 251 (182-369) K/mm3 MPV 9.6 (9.4-12.3) fl Neut % (Auto) 57.7 (34.0-71.1) % Lymph % (Auto) 24.4 (19.3-51.7) % [place] % (Auto) 11.3 (4.7-12.5) % Eos % (Auto) 6.2 H (0.7-5.8) Baso % (Auto) 0.3 (0.1-1.2) % Neut # (Auto) 4.08 (1.56-6.13) K/mm3 Lymph # (Auto) 1.73 (1.18-3.74) K/mm3 [place] # (Auto) 0.80 H (0.24-0.36) K/mm3 Eos # (Auto) 0.44 H (0.04-0.36) K/mm3 Baso # (Auto) 0.02 (0.01-0.08) K/mm3 Sodium 141 (136-145) mEq/L Potassium 3.8 (3.5-5.1) mEq/L Chloride 105 (98-107) mEq/L Carbon Dioxide 27 (21-32) mEq/L Anion Gap 12.8 (5-15) BUN 30 H (7-18) mg/dL Creatinine 1.1 H (0.55-1.02) mg/dL Est Cr Clr Drug Dosing 27.42 mL/min Estimated GFR (MDRD) 47 (>60) mL/min BUN/Creatinine Ratio 27.3 H (14-18) Glucose 98 (83-115) mg/dL Calcium 9.2 (8.5-10.1) mg/dL Magnesium 1.2 L (1.8-2.4) mg/dl NT-Pro-B Natriuret Pep (0-450) pg/mL Urine Color Yellow (Yellow) Urine Appearance Clear (Clear) Urine pH 6.0 (5.0-8.0) Ur Specific [place] 1.020 (1.005-1.030) Urine Protein Negative (Negative) Urine Glucose (UA) Negative (Negative) Urine Ketones Negative (Negative) Urine Occult Blood Negative (Negative) Urine Nitrite Negative (Negative) Urine Bilirubin Negative (Negative) Urine Urobilinogen 1.0 (0.2-1.0) Ur Leukocyte Esterase 1+ H (Negative) Urine RBC 0-5 (0-5) /hpf Urine WBC 5-10 H (0-5) /hpf Ur Epithelial Cells 10-20 H (0-5) /hpf Urine Bacteria Moderate H (FEW) /hpf Urine Mucus Moderate H (FEW) /hpf 05/02/18 Range/Units 05:15 WBC (3.98-10.04) K/mm3 RBC (3.98-5.22) M/mm3 Hgb (11.2-15.7) gm/L Hct (34.1-44.9) % MCV (79.4-94.8) fl MCH (25.6-32.2) pg MCHC (32.2-35.5) g/dl RDW Std Deviation (36.4-46.3) fL Plt Count (182-369) K/mm3 MPV (9.4-12.3) fl Neut % (Auto) (34.0-71.1) % Lymph % (Auto) (19.3-51.7) % [place] % (Auto) (4.7-12.5) % Eos % (Auto) (0.7-5.8) Baso % (Auto) (0.1-1.2) % Neut # (Auto) (1.56-6.13) K/mm3 Lymph # (Auto) (1.18-3.74) K/mm3 [place] # (Auto) (0.24-0.36) K/mm3 Eos # (Auto) (0.04-0.36) K/mm3 Baso # (Auto) (0.01-0.08) K/mm3 Sodium (136-145) mEq/L Potassium (3.5-5.1) mEq/L Chloride (98-107) mEq/L Carbon Dioxide (21-32) mEq/L Anion Gap (5-15) BUN (7-18) mg/dL Creatinine (0.55-1.02) mg/dL Est Cr Clr Drug Dosing mL/min Estimated GFR (MDRD) (>60) mL/min BUN/Creatinine Ratio (14-18) Glucose (83-115) mg/dL Calcium (8.5-10.1) mg/dL Magnesium (1.8-2.4) mg/dl NT-Pro-B Natriuret Pep 1246 H (0-450) pg/mL Urine Color (Yellow) Urine Appearance (Clear) Urine pH (5.0-8.0) Ur Specific [place] (1.005-1.030) Urine Protein (Negative) Urine Glucose (UA) (Negative) Urine Ketones (Negative) Urine Occult Blood (Negative) Urine Nitrite (Negative) Urine Bilirubin (Negative) Urine Urobilinogen (0.2-1.0) Ur Leukocyte Esterase (Negative) Urine RBC (0-5) /hpf Urine WBC (0-5) /hpf Ur Epithelial Cells (0-5) /hpf Urine Bacteria (FEW) /hpf Urine Mucus (FEW) /hpf Med Orders - Current: Current Medications Acetaminophen (Tylenol) 650 mg PO Q4H PRN PRN Reason: Pain (Mild 1-3)/fever Hydrocodone Bitart/Acetaminophen ([place] 325-5 Mg) 1 tab PO Q4H PRN PRN Reason: Pain (moderate 4-6) Albuterol/Ipratropium (Duoneb 3.0-0.5 Mg/3 Ml) 3 ml NEB Q4H PRN PRN Reason: Shortness Of Breath/wheezing Bisacodyl (Dulcolax) 5 mg PO DAILY PRN PRN Reason: Constipation Diltiazem HCl (Dilacor Xr) 240 mg PO DAILY [facility] Last Admin: 05/02/18 10:17 Dose: 240 mg Docusate Sodium (Colace) 100 mg PO BID PRN PRN Reason: Constipation Ferrous Sulfate (Ferrous Sulfate) 325 mg PO DAILY [facility] Last Admin: 05/02/18 10:17 Dose: 325 mg Furosemide (Lasix) 40 mg IVPUSH DAILY [facility] Last Admin: 05/02/18 10:17 Dose: 40 mg Guaifenesin/Phenylephrine HCl (Robitussin Dm) 10 ml PO Q6HR PRN PRN Reason: Cough Last Admin: 05/02/18 07:00 Dose: 10 ml Hydralazine HCl (Apresoline) 10 mg IVPUSH Q6H PRN PRN Reason: Hypertension Ceftriaxone Sodium 2 gm/ (Sodium Chloride) 100 mls @ 200 mls/hr IV Q24H [facility] Lorazepam (Ativan) 2 mg IVPUSH Q4H PRN PRN Reason: Seizures Methimazole (Methimazole) 5 mg PO DAILY [facility] Last Admin: 05/02/18 10:17 Dose: 5 mg Metoprolol Tartrate (Lopressor) 5 mg IVPUSH Q4H PRN PRN Reason: Tachycardia Ondansetron HCl (Zofran Odt) 4 mg PO Q6H PRN PRN Reason: nausea, able to take PO Ondansetron HCl (Zofran) 4 mg IV Q6H PRN PRN Reason: Nausea/Vomiting Pantoprazole Sodium (Protonix) 40 mg PO ACBREAKFAST [facility] Last Admin: 05/02/18 06:16 Dose: 40 mg Potassium Chloride (Klor-Con 10) 10 meq PO DAILY [facility] Last Admin: 05/02/18 10:17 Dose: 10 meq Saccharomyces Boulardii (Florastor) 250 mg PO BID [facility] Senna/Docusate Sodium (Senna Plus) 1 tab PO BID PRN PRN Reason: Constipation Sodium Chloride (Saline Flush) 10 ml FLUSH ASDIRECTED PRN PRN Reason: Keep Vein Open Last Admin: 05/01/18 01:30 Dose: 10 ml Discontinued Medications Famotidine (Pepcid) 20 mg PO BID [facility] Last Admin: 05/01/18 09:36 Dose: 20 mg Famotidine (Pepcid) 20 mg PO DAILY [facility] Furosemide (Lasix) 40 mg IVPUSH NOW ONE Stop: 05/01/18 03:25 Last Admin: 05/01/18 03:32 Dose: 40 mg Magnesium Sulfate 4 gm/ Premix 100 mls @ 25 mls/hr IV ONETIME ONE Stop: 05/02/18 12:29 Last Admin: 05/02/18 10:17 Dose: 25 mls/hr Magnesium Sulfate (Pharmacy To Dose - Magnesium Replacement) 1 dose .XX ASDIRECTED [facility] Potassium Chloride (Pharmacy To Dose - Potassium Replacement) 1 dose .XX ASDIRECTED [facility] Potassium Chloride (Klor-Con M20) 40 meq PO ONETIME ONE Stop: 05/01/18 12:01 Last Admin: 05/01/18 11:45 Dose: 40 meq - Exam Quality Assessment: DVT Prophylaxis. No: Supplemental Oxygen General: Alert, Oriented, Cooperative, No Acute Distress HEENT: Pupils Equal, Pupils Reactive, EOMI, Mucous Membr. Moist/[place] Neck: Supple Lungs: Clear to Auscultation, Normal Respiratory Effort Cardiovascular: Irregular Rhythm. No: Regular Rate (irregular) GI/Abdominal Exam: Normal Bowel Sounds, Soft, Non-Tender, No Organomegaly, No Distention, No Abnormal Bruit, No Mass, Pelvis Stable (Female) Exam: Deferred Back Exam: Normal Inspection, Full Range of Motion Extremities: Normal Inspection, Normal Range of Motion, Non-Tender, No Pedal Edema, Normal Capillary Refill Peripheral Pulses: 2+: Posterior Tibial (L), Posterior Tibial (R), Dorsalis Pedis (L), Dorsalis Pedis (R) Skin: Warm, Dry, Intact Neurological: No New Focal Deficit Psy/Mental Status: Alert, Normal Affect, Normal Mood - Problem List & Annotations (1) UTI (urinary tract infection) SNOMED Code(s): 52645733 Code(s): N39.0 - URINARY TRACT INFECTION, SITE NOT SPECIFIED Status: Acute Priority: High Current Visit: Yes Qualifiers: Urinary tract infection type: site unspecified Hematuria presence: without hematuria Qualified Code(s): N39.0 - Urinary tract infection, site not specified (2) Fall SNOMED Code(s): 3126682, 045667876 Code(s): W19.XXXA - UNSPECIFIED FALL, INITIAL ENCOUNTER Status: Acute Priority: High Current Visit: Yes Qualifiers: Encounter type: initial encounter Qualified Code(s): W19.XXXA - Unspecified fall, initial encounter (3) Subdural hematoma SNOMED Code(s): 42681175 Code(s): S06.5X9A - TRAUM SUBDR HEM W LOC OF UNSP DURATION, INIT Status: Acute Priority: High Current Visit: Yes - Problem List Review Problem List Initiated/Reviewed/Updated: Yes - My Orders Last 24 Hours: My Active Orders 05/02/18 15:30 cefTRIAXone [Rocephin] 2 gm Sodium Chloride 0.9% [Normal Saline] 100 ml IV Q24H 05/02/18 21:00 Saccharomyces Boulardii [Florastor] 250 mg PO BID - Plan Plan:: I/P: Subdural hematoma -2/2 fall - hit head, denies LOC -Risk factor: on Warfarin -INR 1.42 -Head CT scan: Acute subdural hematoma layering along falx cerebri measuring 2mm in thickness -Dr. Guerra contacted by ED Provider: Recommending observation and repeat CT in one month with him -Seizure precautions -Neuro checks as ordered -Fall precautions -PT/OT -Repeat CT if needed S/P Fall -Fell at home going from kitchen to living room -Unsure why she fell -Denies LOC -Reports productive cough and SOB for last 2 weeks -No leukocytosis, reports fever and cold 2 weeks ago -UA shows probable contamination; denies urinary symptoms; repeat -EKG in ED shows A-fib with no ST changes -Troponin negative -Viral panel ordered Elevated BNP -BNP 2047--> 1246 -No reported prior history of heart failure -CXR in ED: Nothing acute superior mediastinal mass correlating with substernal thyroid goiter -Trace pedal edema -40mg IVP Lasix given in ED -Reports productive cough and SOB for last 2 weeks -On home lisinopril/HCTZ and lasix -Troponin negative -Obtain old records: No hx of heart failure, Hx/o dependant edema -Echo: * LVEF 55% * Mild LVH * Moderate tricuspid valve regurgitation * R Vent systolic pressure mod elevated at 53.1 * Afib/flutter * ADS/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 fib hypertension Atrial septal defect Hyperglycemia chronic back pain chronic neck pain hyperthyroidism dependant edema DJD Plan: Admit to medical floor on telemetry Home medications as ordered Routine AM labs PT/OT CM/SW for discharge planning Other orders as indicated above DVT prophylaxis: SCDs GI Prophylaxis: Pepcid Code status: Full Code; PCP: Dr. Barton
[2018-05-02] MEDS: Saccharomyces Boulardii (Probiotic) 250 MG Cap PO SCH (16:51)
[2018-05-02] MEDS: cefTRIAXone 2 GM in Sodium Chloride 0.9% 100 ML IV SCH (16:54)
[2018-05-03] MEDS: Pantoprazole 40 MG Tab.CR PO SCH (07:14)
[2018-05-03] MEDS: Saccharomyces Boulardii (Probiotic) 250 MG Cap PO SCH ×2 (07:14→17:20)
[2018-05-03] MEDS: Methimazole 5 MG Tab PO SCH (09:30)
[2018-05-03] MEDS: Diltiazem 240 MG Cap.ER PO SCH (09:31)
[2018-05-03] MEDS: Potassium Chloride 10 MEQ Tab.ER PO SCH (09:31)
[2018-05-03] MEDS: Ferrous Sulfate 325 MG Tab PO SCH (09:32)
[2018-05-03] MEDS: Furosemide 40 MG/4 ML VIAL IVPUSH SCH (09:33)
[2018-05-03] MEDS: Potassium Chloride 20 MEQ Tab.ER PO SCH ×2 (13:08→20:58)
[2018-05-03] MEDS: cefTRIAXone 2 GM in Sodium Chloride 0.9% 100 ML IV SCH (17:19)
--- NOTE | 2018-05-03 17:42 | PCM.PN ---
- General Info Date of Service: 05/03/18 Functional Status: Reports: Pain Controlled, Tolerating Diet, Ambulating, Urinating - Review of Systems General: Reports: No Symptoms HEENT: Reports: No Symptoms Pulmonary: Reports: No Symptoms Cardiovascular: Reports: No Symptoms Gastrointestinal: Reports: No Symptoms Genitourinary: Reports: No Symptoms Musculoskeletal: Reports: No Symptoms Skin: Reports: No Symptoms Neurological: Reports: No Symptoms Psychiatric: Reports: No Symptoms - Patient Data Vitals - Most Recent: Last Vital Signs Temp 36.7 C 05/03/18 15:20 Pulse 55 L 05/03/18 15:20 Resp 18 05/03/18 15:20 BP 126/74 05/03/18 15:20 Pulse Ox 95 05/03/18 15:20 Weight - Most Recent: 80.694 kg I&O - Last 24 Hours: Intake & Output 05/03/18 05/03/18 05/03/18 06:59 14:59 22:59 Intake Total 400 180 920 Balance 400 180 920 Lab Results Last 24 Hours: Laboratory Results - last 24 hr 05/01/18 05/03/18 05/03/18 Range/Units 12:56 05:40 05:40 WBC 6.51 (3.98-10.04) K/mm3 RBC 4.25 (3.98-5.22) M/mm3 Hgb 11.7 (11.2-15.7) gm/L Hct 37.0 (34.1-44.9) % MCV 87.1 (79.4-94.8) fl MCH 27.5 (25.6-32.2) pg MCHC 31.6 L (32.2-35.5) g/dl RDW Std Deviation 42.5 (36.4-46.3) fL Plt Count 270 (182-369) K/mm3 MPV 9.5 (9.4-12.3) fl Neut % (Auto) 57.1 (34.0-71.1) % Lymph % (Auto) 24.0 (19.3-51.7) % [place] % (Auto) 11.2 (4.7-12.5) % Eos % (Auto) 6.9 H (0.7-5.8) Baso % (Auto) 0.5 (0.1-1.2) % Neut # (Auto) 3.72 (1.56-6.13) K/mm3 Lymph # (Auto) 1.56 (1.18-3.74) K/mm3 [place] # (Auto) 0.73 H (0.24-0.36) K/mm3 Eos # (Auto) 0.45 H (0.04-0.36) K/mm3 Baso # (Auto) 0.03 (0.01-0.08) K/mm3 Sodium 137 (136-145) mEq/L Potassium 3.3 L (3.5-5.1) mEq/L Chloride 103 (98-107) mEq/L Carbon Dioxide 28 (21-32) mEq/L Anion Gap 9.3 (5-15) BUN 25 H (7-18) mg/dL Creatinine 1.1 H (0.55-1.02) mg/dL Est Cr Clr Drug Dosing 27.42 mL/min Estimated GFR (MDRD) 47 (>60) mL/min BUN/Creatinine Ratio 22.7 H (14-18) Glucose 104 (83-115) mg/dL Calcium 9.5 (8.5-10.1) mg/dL Magnesium 2.1 (1.8-2.4) mg/dl Adenovirus (PCR) Not detected (Not Detected) B. pertussis DNA (PCR) Not detected (Not Detected) B.parapertussis DNA PCR Not detected (Not Detected) C. pneumoniae DNA (PCR) Not detected (Not Detected) Coronavirus (PCR) Not detected (Not Detected) Human Metapneumovir PCR Not detected (Not Detected) Influenza A (RT-PCR) Not detected (Not Detected) Influenza B (RT-PCR) Not detected (Not Detected) M. pneumoniae (PCR) Not detected (Not Detected) Parainfluen 1,2,3,4 PCR Not detected (Not Detected) RSV (PCR) Not detected (Not Detected) Entero/Rhino (PCR) Detected H (Not Detected) Med Orders - Current: Current Medications Acetaminophen (Tylenol) 650 mg PO Q4H PRN PRN Reason: Pain (Mild 1-3)/fever Hydrocodone Bitart/Acetaminophen ([place] 325-5 Mg) 1 tab PO Q4H PRN PRN Reason: Pain (moderate 4-6) Albuterol/Ipratropium (Duoneb 3.0-0.5 Mg/3 Ml) 3 ml NEB Q4H PRN PRN Reason: Shortness Of Breath/wheezing Bisacodyl (Dulcolax) 5 mg PO DAILY PRN PRN Reason: Constipation Diltiazem HCl (Dilacor Xr) 240 mg PO DAILY [facility] Last Admin: 05/03/18 09:31 Dose: 240 mg Docusate Sodium (Colace) 100 mg PO BID PRN PRN Reason: Constipation Ferrous Sulfate (Ferrous Sulfate) 325 mg PO DAILY [facility] Last Admin: 05/03/18 09:32 Dose: 325 mg Furosemide (Lasix) 40 mg IVPUSH DAILY [facility] Last Admin: 05/03/18 09:33 Dose: 40 mg Guaifenesin/Phenylephrine HCl (Robitussin Dm) 10 ml PO Q6HR PRN PRN Reason: Cough Last Admin: 05/02/18 07:00 Dose: 10 ml Hydralazine HCl (Apresoline) 10 mg IVPUSH Q6H PRN PRN Reason: Hypertension Ceftriaxone Sodium 2 gm/ (Sodium Chloride) 100 mls @ 100 mls/hr IV Q24H [facility] Last Admin: 05/03/18 17:19 Dose: 100 mls/hr Lorazepam (Ativan) 2 mg IVPUSH Q4H PRN PRN Reason: Seizures Methimazole (Methimazole) 5 mg PO DAILY [facility] Last Admin: 05/03/18 09:30 Dose: 5 mg Metoprolol Tartrate (Lopressor) 5 mg IVPUSH Q4H PRN PRN Reason: Tachycardia Ondansetron HCl (Zofran Odt) 4 mg PO Q6H PRN PRN Reason: nausea, able to take PO Ondansetron HCl (Zofran) 4 mg IV Q6H PRN PRN Reason: Nausea/Vomiting Pantoprazole Sodium (Protonix) 40 mg PO ACBREAKFAST [facility] Last Admin: 05/03/18 07:14 Dose: 40 mg Potassium Chloride (Klor-Con M20) 40 meq PO BID [facility] Last Admin: 05/03/18 13:08 Dose: 40 meq Saccharomyces Boulardii (Florastor) 250 mg PO BIDMEALS [facility] Last Admin: 05/03/18 17:20 Dose: 250 mg Senna/Docusate Sodium (Senna Plus) 1 tab PO BID PRN PRN Reason: Constipation Sodium Chloride (Saline Flush) 10 ml FLUSH ASDIRECTED PRN PRN Reason: Keep Vein Open Last Admin: 05/01/18 01:30 Dose: 10 ml Discontinued Medications Famotidine (Pepcid) 20 mg PO BID [facility] Last Admin: 05/01/18 09:36 Dose: 20 mg Famotidine (Pepcid) 20 mg PO DAILY [facility] Furosemide (Lasix) 40 mg IVPUSH NOW ONE Stop: 05/01/18 03:25 Last Admin: 05/01/18 03:32 Dose: 40 mg Magnesium Sulfate 4 gm/ Premix 100 mls @ 25 mls/hr IV ONETIME ONE Stop: 05/02/18 12:29 Last Admin: 05/02/18 10:17 Dose: 25 mls/hr Ceftriaxone Sodium 2 gm/ (Sodium Chloride) 100 mls @ 200 mls/hr IV Q24H [facility] Stop: 05/02/18 15:31 Last Admin: 05/02/18 20:09 Dose: Not Given Magnesium Sulfate (Pharmacy To Dose - Magnesium Replacement) 1 dose .XX ASDIRECTED [facility] Potassium Chloride (Pharmacy To Dose - Potassium Replacement) 1 dose .XX ASDIRECTED [facility] Potassium Chloride (Klor-Con 10) 10 meq PO DAILY [facility] Last Admin: 05/03/18 09:31 Dose: 10 meq Potassium Chloride (Klor-Con M20) 40 meq PO ONETIME ONE Stop: 05/01/18 12:01 Last Admin: 05/01/18 11:45 Dose: 40 meq - Exam Quality Assessment: DVT Prophylaxis General: Alert, Oriented, Cooperative, No Acute Distress HEENT: Pupils Equal, Pupils Reactive, EOMI Neck: Trachea Midline, No JVD Lungs: Normal Respiratory Effort Cardiovascular: Regular Rate, Regular Rhythm GI/Abdominal Exam: Normal Bowel Sounds, Soft, Non-Tender (Female) Exam: Deferred Back Exam: Normal Inspection Extremities: Non-Tender, Normal Capillary Refill Skin: Warm, Dry, Intact Neurological: No New Focal Deficit Psy/Mental Status: Alert, Normal Affect, Normal Mood - Problem List Review Problem List Initiated/Reviewed/Updated: Yes - My Orders Last 24 Hours: My Active Orders 05/03/18 12:00 Potassium Chloride [Klor-Con M20] 40 meq PO BID - Plan Plan:: I/P: Subdural hematoma -2/2 fall - hit head, denies LOC -Risk factor: on Warfarin -INR 1.42 -Head CT scan: Acute subdural hematoma layering along falx cerebri measuring 2mm in thickness -Dr. Guerra contacted by ED Provider: Recommending observation and repeat CT in one month with him -Seizure precautions -Neuro checks as ordered -Fall precautions -PT/OT -Repeat CT if needed S/P Fall -Fell at home going from kitchen to living room -Unsure why she fell -Denies LOC -Reports productive cough and SOB for last 2 weeks -No leukocytosis, reports fever and cold 2 weeks ago -UA shows probable contamination; denies urinary symptoms; repeat -EKG in ED shows A-fib with no ST changes -Troponin negative -Viral panel ordered Elevated BNP -BNP 2047--> 1246 -No reported prior history of heart failure -CXR in ED: Nothing acute superior mediastinal mass correlating with substernal thyroid goiter -Trace pedal edema -40mg IVP Lasix given in ED -Reports productive cough and SOB for last 2 weeks -On home lisinopril/HCTZ and lasix -Troponin negative -Obtain old records: No hx of heart failure, Hx/o dependant edema -Echo: * LVEF 55% * Mild LVH * Moderate tricuspid valve regurgitation * R Vent systolic pressure mod elevated at 53.1 * Afib/flutter * ADS/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 fib hypertension Atrial septal defect Hyperglycemia chronic back pain chronic neck pain hyperthyroidism dependant edema DJD Plan: Admit to medical floor on telemetry Home medications as ordered Routine AM labs PT/OT CM/SW for discharge planning Other orders as indicated above DVT prophylaxis: SCDs GI Prophylaxis: Pepcid Code status: Full Code; PCP: Dr. Mick READ 05/04/18.
[2018-05-03] MEDS: guaiFENesin/Dextromethorphan 100-10 MG/5 ML Soln 5 ML Cup PO PRN (18:39)
[2018-05-04] MEDS: Pantoprazole 40 MG Tab.CR PO SCH (05:14)
[2018-05-04] MEDS: Saccharomyces Boulardii (Probiotic) 250 MG Cap PO SCH ×2 (05:14→06:12)
[2018-05-04] MEDS: Furosemide 40 MG/4 ML VIAL IVPUSH SCH (08:38)
[2018-05-04] MEDS: Ferrous Sulfate 325 MG Tab PO SCH (08:43)
[2018-05-04] MEDS: Methimazole 5 MG Tab PO SCH (08:43)
[2018-05-04] MEDS: Potassium Chloride 20 MEQ Tab.ER PO SCH (08:43)
[2018-05-04] MEDS: Diltiazem 240 MG Cap.ER PO SCH (08:44)
[2018-05-04 08:51] VITALS: BP 108/71
[2018-05-04] MEDS ORDERED: Magnesium Sulfate/Water 4 GM in Premix Bag 1 BAG IV ONE (09:25)
--- NOTE | 2018-05-04 13:11 | PCM.DCSUM1 ---
Discharge Summary - Hospital Course Free Text/Narrative:: 87 year old female with a new subdural hematoma was also diagnosed with an AUTI as well a viral respiratory infection. She was placed in droplet isolation with supportive care. The anticoagulation for A Fib, coumadin was held. Repeat CT of head w/o contrast were taken, the hematoma has been stable. She is expected to see a neurologist and have a repeat CT of the head in 4 weeks. Anticoagulation was not addressed by the technology sales consultant, the primary service will DC her without ASA until a repeat CT of the head has been taken. This has been scheduled 05/07/18. The resumption of Coumadin will be decided by her PCP/Neurologist. The patient's [id number] is 5, this is a risk of 6.7% of a CVA annually. HPI Initial Comments: Pamela Lim is an 87 yo female patient who presented to our ED via ambulance late last night (05/01/18) after a fall. She was reportedly walking from her kitchen into the living room and fell. She denies loss of consciousness but states she did her head. She is unsure why she fell but states she has been weak lately. She reports SOB, cough, and yellow colored sputum. She denies headache, neck pain, abdominal pain, nausea, vomiting, weakness, fever, or chills. In the ED temperature was 98.4 Fahrenheit. Pulse 114. Respirations 18. Blood pressure 160/92. Pulse ox 92%. Twelve-lead EKG was obtained and interpreted by the ED provider as A. fib at 106 bpm. There is left axis deviation. No ST segment abnormalities. Obtained: WBC normal at 8.36. Hemoglobin 12.7. Hematocrit 39.2. She's normocytic. Platelets are normal at 239,000. Neutrophils are elevated at 74.6%. PT is 15.4. INR is 1.42. Sodium is 136. Potassium is low at 3.3. Chloride is 104. Carbon dioxide 24. Anion gap 11.3. BUN is 24. Creatinine 1.0. EGFR is 52. Glucose 98. Calcium 9.2. Bilirubin 0.8. AST is elevated at 38, ALT 24, alkaline phosphatase 146. Troponin is negative at less than 0.017. Total protein is 8.2. Albumin is low at 3.2. ProBNP is high at 2047. UA is obtained and is noted to be dark yellow and slightly cloudy. One plus protein, trace ketones, 1+ bilirubin, 2.0-year- old bilirubin, 1+ leuk esterase, 5-10 urine wbc's, and 10-20 epithelial cells are noted. There is moderate bacteria. This is most likely district representative of contamination. Chest x-ray obtained shows a widened mediastinum however this is noted to be similar to prior chest x-rays. There is mild congestive changes. CT scan of the head was obtained and shows an acute subdural hematoma with around the falx cerebri measuring 2 mm in thickness. The ED provider did contact atelectasis in [place] and talk with Dr. Guerra. He recommended she be observed and repeat CT scan be obtained with him in a month. She carries a history of: A. fib, hypertension, Atrial septal defect , Hyperglycemia, chronic back pain, chronic neck pain, hyperthyroidism, dependant edema, DJD. She was never a smoker. She is a full code. Her PCP is Dr. Barton. Diagnosis: Stroke: No - Discharge Data Discharge Date: 05/04/18 Discharge Disposition: Home, Self-Care 01 Condition: Good - Patient Summary/Data Consults: Consultations 05/01/18 08:42 Consult to Case Management/[place] [place] Aide [CONS] Routine Consult to Spiritual Care [CONS] Routine OT Evaluation and Treatment [CONS] Routine PT Evaluation and Treatment [CONS] Routine Recommended Follow-up Testing/Procedures: CT of head without contrast, and neurology consult. - Patient Instructions Diet: Usual Diet as Tolerated Activity: As Tolerated Driving: Do Not Drive Showering/Bathing: May Shower Notify Provider of: Fever, Increased Pain, Nausea and/or Vomiting - Discharge Plan *PRESCRIPTION DRUG MONITORING PROGRAM REVIEWED*: Not Applicable *COPY OF PRESCRIPTION DRUG MONITORING REPORT IN PATIENT MIREYA: Not Applicable Prescriptions/Med Rec: cephALEXin [Keflex] 250 mg PO Q6HR #20 cap Dextromethorphan/guaiFENesin [Robitussin DM] 10 ml PO Q6HR PRN #200 cup PRN Reason: Cough Aspirin [Halfprin] 81 mg PO DAILY #30 tab.ec Saccharomyces Boulardii [Florastor] 250 mg PO BIDMEALS #60 cap Home Medications: Home Meds Acetaminophen 500 mg PO Q4H PRN 03/20/17 [History] Diltiazem HCl [Diltiazem 24Hr ER] 240 mg PO DAILY 03/20/17 [History] Furosemide 1 - 2 tab PO DAILY PRN 03/20/17 [History] Lisinopril/Hydrochlorothiazide [Lisinopril-Hctz 20-25 mg Tab] 1 tab PO DAILY 04/28 [History] Omeprazole 20 mg PO ACBREAKFAST 03/20/17 [History] Potassium Chloride [Klor-Con 10] 10 meq PO DAILY 03/20/17 [History] methIMAzole [Methimazole] 5 mg PO DAILY 03/20/17 [History] Ferrous Sulfate [Slow Fe] 1 tab PO DAILY 05/01/18 [History] Aspirin [Halfprin] 81 mg PO DAILY #30 tab.ec 05/04/18 [Rx] Dextromethorphan/guaiFENesin [Robitussin DM] 10 ml PO Q6HR PRN #200 cup [Rx] Saccharomyces Boulardii [Florastor] 250 mg PO BIDMEALS #60 cap 05/04/18 [Rx] cephALEXin [Keflex] 250 mg PO Q6HR #20 cap 05/04/18 [Rx] Other Amb Orders: Head wo Cont [CT] Time Frame: 05/07/18, Facility: [facility], Location: [facility] Forms: ED Department Discharge Referrals: Alan Barton MD [Primary Care Provider] - () Carlito Guerra MD [Consulting Physician] - (Neurologist. Schedule follow-up head CT scan within [address] Guerra appointment to follow.) - Discharge Summary/Plan Comment DC Time >30 min.: No - General Info Date of Service: 05/01/18 Functional Status: Reports: Pain Controlled, Tolerating Diet, Ambulating, Urinating - Review of Systems General: Reports: No Symptoms HEENT: Reports: No Symptoms Pulmonary: Reports: No Symptoms Cardiovascular: Reports: No Symptoms Gastrointestinal: Reports: No Symptoms Genitourinary: Reports: No Symptoms Musculoskeletal: Reports: No Symptoms Skin: Reports: No Symptoms Neurological: Reports: No Symptoms Psychiatric: Reports: No Symptoms - Patient Data Vitals - Most Recent: Last Vital Signs Temp 36.9 C 05/04/18 08:37 Pulse 70 05/04/18 08:37 Resp 16 05/04/18 08:37 BP 108/71 05/04/18 08:37 Pulse Ox 95 05/04/18 08:37 Weight - Most Recent: 80.694 kg I&O - Last 24 hours: Intake & Output 05/03/18 05/04/18 05/04/18 22:59 06:59 14:59 Intake Total 1100 800 180 Output Total 1300 Balance 1100 -500 180 Lab Results - Last 24 hrs: Laboratory Results - last 24 hr 05/04/18 05/04/18 Range/Units 06:19 06:19 WBC 8.27 (3.98-10.04) K/mm3 RBC 3.96 L (3.98-5.22) M/mm3 Hgb 11.2 (11.2-15.7) gm/L Hct 34.4 (34.1-44.9) % MCV 86.9 (79.4-94.8) fl MCH 28.3 (25.6-32.2) pg MCHC 32.6 (32.2-35.5) g/dl RDW Std Deviation 42.0 (36.4-46.3) fL Plt Count 267 (182-369) K/mm3 MPV 9.0 L (9.4-12.3) fl Neut % (Auto) 66.4 (34.0-71.1) % Lymph % (Auto) 19.3 (19.3-51.7) % [place] % (Auto) 10.8 (4.7-12.5) % Eos % (Auto) 3.1 (0.7-5.8) Baso % (Auto) 0.2 (0.1-1.2) % Neut # (Auto) 5.48 (1.56-6.13) K/mm3 Lymph # (Auto) 1.60 (1.18-3.74) K/mm3 [place] # (Auto) 0.89 H (0.24-0.36) K/mm3 Eos # (Auto) 0.26 (0.04-0.36) K/mm3 Baso # (Auto) 0.02 (0.01-0.08) K/mm3 Sodium 138 (136-145) mEq/L Potassium 4.3 (3.5-5.1) mEq/L Chloride 105 (98-107) mEq/L Carbon Dioxide 25 (21-32) mEq/L Anion Gap 12.3 (5-15) BUN 27 H (7-18) mg/dL Creatinine 1.2 H (0.55-1.02) mg/dL Est Cr Clr Drug Dosing 25.14 mL/min Estimated GFR (MDRD) 42 (>60) mL/min BUN/Creatinine Ratio 22.5 H (14-18) Glucose 107 (83-115) mg/dL Calcium 9.3 (8.5-10.1) mg/dL Magnesium 1.6 L (1.8-2.4) mg/dl ISREAL Results - Last 24 hrs: Microbiology 05/01/18 11:00 Urine Culture - Final Urine, Clean Catch MIXED FERMÍN SUGGESTIVE OF CONTAMINATION. Med Orders - Current: Current Medications Acetaminophen (Tylenol) 650 mg PO Q4H PRN PRN Reason: Pain (Mild 1-3)/fever Hydrocodone Bitart/Acetaminophen ([place] 325-5 Mg) 1 tab PO Q4H PRN PRN Reason: Pain (moderate 4-6) Albuterol/Ipratropium (Duoneb 3.0-0.5 Mg/3 Ml) 3 ml NEB Q4H PRN PRN Reason: Shortness Of Breath/wheezing Bisacodyl (Dulcolax) 5 mg PO DAILY PRN PRN Reason: Constipation Cephalexin (Keflex) 250 mg PO Q6HR [facility] Diltiazem HCl (Dilacor Xr) 240 mg PO DAILY [facility] Last Admin: 05/04/18 08:44 Dose: 240 mg Docusate Sodium (Colace) 100 mg PO BID PRN PRN Reason: Constipation Last Admin: 05/03/18 18:39 Dose: 100 mg Ferrous Sulfate (Ferrous Sulfate) 325 mg PO DAILY [facility] Last Admin: 05/04/18 08:43 Dose: 325 mg Furosemide (Lasix) 40 mg IVPUSH DAILY [facility] Last Admin: 05/04/18 08:38 Dose: 40 mg Guaifenesin/Phenylephrine HCl (Robitussin Dm) 10 ml PO Q6HR PRN PRN Reason: Cough Last Admin: 05/03/18 18:39 Dose: 10 ml Hydralazine HCl (Apresoline) 10 mg IVPUSH Q6H PRN PRN Reason: Hypertension Ceftriaxone Sodium 2 gm/ (Sodium Chloride) 100 mls @ 100 mls/hr IV Q24H [facility] Lorazepam (Ativan) 2 mg IVPUSH Q4H PRN PRN Reason: Seizures Methimazole (Methimazole) 5 mg PO DAILY [facility] Last Admin: 05/04/18 08:43 Dose: 5 mg Metoprolol Tartrate (Lopressor) 5 mg IVPUSH Q4H PRN PRN Reason: Tachycardia Ondansetron HCl (Zofran Odt) 4 mg PO Q6H PRN PRN Reason: nausea, able to take PO Ondansetron HCl (Zofran) 4 mg IV Q6H PRN PRN Reason: Nausea/Vomiting Pantoprazole Sodium (Protonix) 40 mg PO ACBREAKFAST [facility] Last Admin: 05/04/18 05:14 Dose: 40 mg Potassium Chloride (Klor-Con M20) 40 meq PO BID [facility] Last Admin: 05/04/18 08:43 Dose: 40 meq Saccharomyces Boulardii (Florastor) 250 mg PO BIDMEALS [facility] Last Admin: 05/04/18 06:12 Dose: Not Given Senna/Docusate Sodium (Senna Plus) 1 tab PO BID PRN PRN Reason: Constipation Sodium Chloride (Saline Flush) 10 ml FLUSH ASDIRECTED PRN PRN Reason: Keep Vein Open Last Admin: 05/01/18 01:30 Dose: 10 ml Discontinued Medications Famotidine (Pepcid) 20 mg PO BID [facility] Last Admin: 05/01/18 09:36 Dose: 20 mg Famotidine (Pepcid) 20 mg PO DAILY [facility] Furosemide (Lasix) 40 mg IVPUSH NOW ONE Stop: 05/01/18 03:25 Last Admin: 05/01/18 03:32 Dose: 40 mg Magnesium Sulfate 4 gm/ Premix 100 mls @ 25 mls/hr IV ONETIME ONE Stop: 05/02/18 12:29 Last Admin: 05/02/18 10:17 Dose: 25 mls/hr Ceftriaxone Sodium 2 gm/ (Sodium Chloride) 100 mls @ 200 mls/hr IV Q24H [facility] Stop: 05/02/18 15:31 Last Admin: 05/02/18 20:09 Dose: Not Given Ceftriaxone Sodium 2 gm/ (Sodium Chloride) 100 mls @ 100 mls/hr IV Q24H [facility] Last Admin: 05/03/18 17:19 Dose: 100 mls/hr Magnesium Sulfate 4 gm/ Premix 100 mls @ 25 mls/hr IV ONETIME ONE Stop: 05/04/18 09:26 Last Admin: 05/04/18 09:47 Dose: 25 mls/hr Magnesium Sulfate (Pharmacy To Dose - Magnesium Replacement) 1 dose .XX ASDIRECTED [facility] Potassium Chloride (Pharmacy To Dose - Potassium Replacement) 1 dose .XX ASDIRECTED [place] Potassium Chloride (Klor-Con 10) 10 meq PO DAILY [facility] Last Admin: 05/03/18 09:31 Dose: 10 meq Potassium Chloride (Klor-Con M20) 40 meq PO ONETIME ONE Stop: 05/01/18 12:01 Last Admin: 05/01/18 11:45 Dose: 40 meq - Exam General: Reports: Alert, Oriented, Cooperative HEENT: Reports: Pupils Equal, Pupils Reactive, EOMI Neck: Reports: Trachea Midline, No JVD Lungs: Reports: Normal Respiratory Effort Cardiovascular: Reports: Regular Rate, Regular Rhythm GI/Abdominal Exam: Normal Bowel Sounds, Soft, Non-Tender, No Organomegaly, No Distention (Female) Exam: Deferred Rectal (Female) Exam: Deferred Extremities: Normal Inspection, Non-Tender, Normal Capillary Refill Skin: Reports: Warm, Dry, Intact Neurological: Reports: No New Focal Deficit, Normal Gait, Normal Speech Psy/Mental Status: Reports: Alert, Normal Affect, Normal Mood
[2018-05-04] MEDS ORDERED: cefTRIAXone 2 GM in Sodium Chloride 0.9% 100 ML IV SCH ×2 (13:30→17:00)
[2018-05-05] MEDS ORDERED: Cephalexin 250 MG Cap PO SCH (09:00)
[2018-05-05] MEDS ORDERED: Aspirin 81 MG Tab.EC PO SCH (09:00)
== END 2018-05-04 15:57 | disposition home or self-care (01) | DRG 86 ==
LOC: JD.ED 01:02 → SUPCPDRO 01:02 → JD.MS 06:48 → UNDOADMIN 06:49 → JD.MS 06:49
PROVIDERS: ADMIT Internal Medicine; ATTEND Internal Medicine
DX: S06.5X0A Traumatic subdural hemorrhage without loss of consciousness, initial encounter (principal); Q21.1 Atrial septal defect; N39.0 Urinary tract infection, site not specified; W18.30XA Fall on same level, unspecified, initial encounter; I48.91 Unspecified atrial fibrillation; K29.70 Gastritis, unspecified, without bleeding; M19.90 Unspecified osteoarthritis, unspecified site; G89.29 Other chronic pain; M54.9 Dorsalgia, unspecified; M54.2 Cervicalgia; I50.9 Heart failure, unspecified; E89.0 Postprocedural hypothyroidism; Z79.01 Long term (current) use of anticoagulants; R53.1 Weakness; R06.02 Shortness of breath; R05 Cough; M79.652 Pain in left thigh; Z79.899 Other long term (current) drug therapy; Z96.659 Presence of unspecified artificial knee joint; R73.9 Hyperglycemia, unspecified; J06.9 Acute upper respiratory infection, unspecified
CPT/HCPCS: 36415; 70450; 71046; 80053; 81001; 83880; 84439; 84443; 84484; 85025; 85610; 93005; 96374; 99285; J1940; J7050; 80048; 83735; 87086; 87486; 87581; 87632; 87798; 93010; 93306; 97110-GO; 97110-GP; 97116-GP; 97161-GP; 97165-GO; 97530-GO; A9270-GY; J0696; J3475; J7030